=== PATIENT | female | born 1955 | race Caucasian/White ===

== ENCOUNTER → 2017-01-24 | Outpatient (CLI) | payer OTHER | LOC: LAB 14:43 | DX: N39.0 Urinary tract infection, site not specified (principal); N39.41 Urge incontinence ==

== ENCOUNTER 2017-02-03 03:39 | Emergency (ER) | payer OTHER | END 2017-02-03 07:33 | disposition short-term general hospital (02) | LOC: ER1 03:39 | DX: R07.9 Chest pain, unspecified (principal); F41.9 Anxiety disorder, unspecified; S50.812A Abrasion of left forearm, initial encounter; Z88.0 Allergy status to penicillin; Z88.2 Allergy status to sulfonamides; Z79.899 Other long term (current) drug therapy; W10.9XXA Fall (on) (from) unspecified stairs and steps, initial encounter | CPT/HCPCS: 51702; 71010; 93005; 96374; 96375; 96376; 99285; J2060; J2270 ==

== ENCOUNTER → 2020-11-08 | Outpatient (CLI) | payer MEDICARE, OTHER ==
[~2020-11-08] MED LIST: AMBIEN5 MG PO; CLARITIN10 MG PO; CYANOCOBAL1000 MCG/1 INJ; CYMBALTA60 MG PO; EFFIENT5 MG PO; ELIQUIS 2.5 MG2.5 MG PO; FEOSOL325 MG PO; FLONASE 0.05% N16 GM; IMITREX20 MG; MELATONIN 5 MG1 EAC1 PO; MIRAPEX1 MG PO; NEURONTIN 300300 MG PO; NORCO 10-325 T1 EACH PO; PHENERGAN 25 MG25 M1 PO; PRILOSEC OTC20 MG PO; PROBIOTIC1 EAC1 PO; PROGESTERONE100 MG PO; RESTORIL15 MG PO; SINEQUAN CAP 5050 MG PO; SYNTHROID 150150 MCG PO; VITAMIN D22000 UNIT PO; [UNRECOGNIZED DRUG - OTHER]
== END ==
LOC: EXRD 13:11
DX: Z01.818 Encounter for other preprocedural examination (principal); I51.7 Cardiomegaly; J98.4 Other disorders of lung
CPT/HCPCS: 71046

== ENCOUNTER → 2021-02-07 | Outpatient (CLI) | payer MEDICARE, OTHER | LOC: HEART 5 09:17 | DX: R06.00 Dyspnea, unspecified (principal); R06.02 Shortness of breath | CPT/HCPCS: 94010 ==

== ENCOUNTER → 2021-05-24 | Outpatient (CLI) | payer MEDICARE, OTHER | LOC: OPSV 11:37 | DX: D50.9 Iron deficiency anemia, unspecified (principal); J30.9 Allergic rhinitis, unspecified; R42 Dizziness and giddiness; R06.02 Shortness of breath | CPT/HCPCS: 96365; J1756 ==

== ENCOUNTER → 2021-05-26 | Outpatient (CLI) | payer MEDICARE, OTHER | LOC: OPSV 10:00 | DX: J30.9 Allergic rhinitis, unspecified (principal); R42 Dizziness and giddiness; D50.9 Iron deficiency anemia, unspecified; R06.02 Shortness of breath | CPT/HCPCS: 96365; J1756 ==

== ENCOUNTER → 2021-05-31 | Outpatient (CLI) | payer MEDICARE, OTHER | LOC: OPSV 10:43 | DX: D50.9 Iron deficiency anemia, unspecified (principal); R42 Dizziness and giddiness; M54.9 Dorsalgia, unspecified; J30.9 Allergic rhinitis, unspecified; R06.02 Shortness of breath | CPT/HCPCS: 81001; 96365; J1756 ==

== ENCOUNTER → 2021-06-02 | Outpatient (CLI) | payer MEDICARE, OTHER | LOC: OPSV 10:46 | DX: D50.9 Iron deficiency anemia, unspecified (principal); J30.9 Allergic rhinitis, unspecified; R42 Dizziness and giddiness; R06.02 Shortness of breath | CPT/HCPCS: 96365; J1756 ==

== ENCOUNTER → 2021-06-06 | Outpatient (CLI) | payer MEDICARE, OTHER | LOC: OPSV 10:55 | DX: J30.9 Allergic rhinitis, unspecified (principal); R42 Dizziness and giddiness; D50.9 Iron deficiency anemia, unspecified; R06.02 Shortness of breath | CPT/HCPCS: 96365; J1756 ==

== ENCOUNTER → 2021-06-14 | Outpatient (CLI) | payer MEDICARE, OTHER ==
[2021-06-14 12:04] LABS: HEMOGLOBIN 12.5 gm/dl (12.3-15.3); RED BLOOD COUNT 3.82 M/UL (4.00-5.10); WHITE BLOOD COUNT 4.1 K/UL (4.5-11.0)
== END ==
LOC: LAB 11:20
PROVIDERS: Nurse Practitioner Family
DX: M25.562 Pain in left knee (principal); D64.9 Anemia, unspecified; N39.0 Urinary tract infection, site not specified; D50.9 Iron deficiency anemia, unspecified; M17.12 Unilateral primary osteoarthritis, left knee
CPT/HCPCS: 73562; 81001; 82728; 83540; 83550; 85025

== ENCOUNTER → 2021-08-01 | Outpatient (CLI) | payer MEDICARE, OTHER | LOC: KOH-I 13:11 | DX: S32.030A Wedge compression fracture of third lumbar vertebra, initial encounter for closed fracture (principal); M81.0 Age-related osteoporosis without current pathological fracture; M51.37 Other intervertebral disc degeneration, lumbosacral region | CPT/HCPCS: 72131 ==

== ENCOUNTER 2021-08-03 03:58 | Emergency (ER) | payer MEDICARE, OTHER ==
[2021-08-03 04:35] LABS: HEMOGLOBIN 13.3 gm/dl (12.3-15.3); RED BLOOD COUNT 4.02 M/UL (4.00-5.10); WHITE BLOOD COUNT 4.9 K/UL (4.5-11.0)
[2021-08-03 04:57] LABS: BUN/CREATININE RATIO 19 (0-10)
[2021-08-03 05:28] LABS: BORDETELLA PARAPERTUSSIS Not Detected (Not Detectd); BORDETELLA PERTUSSIS Not Detected (Not Detectd); CHLAMYDIA PNEUMONIAE Not Detected (Not Detectd); CORONAVIRUS HKU1 Not Detected (Not Detectd); CORONAVIRUS NL63 Not Detected (Not Detectd); CORONAVIRUS OC43 Not Detected (Not Detectd); CORONOAVIRUS 229E Not Detected (Not Detectd); HUMAN METAPNEUMOVIRUS Not Detected (Not Detectd); HUMAN RHINOVIRUS/ENTEROVIRUS Not Detected (Not Detectd); INFLUENZA A Not Detected (Not Detectd); INFLUENZA B Not Detected (Not Detectd); MYCOPLASMA PNEUMONIAE Not Detected (Not Detectd); PARAINFLUENZA VIRUS 1 Not Detected (Not Detectd); PARAINFLUENZA VIRUS 2 Not Detected (Not Detectd); PARAINFLUENZA VIRUS 3 Not Detected (Not Detectd); PARAINFLUENZA VIRUS 4 Not Detected (Not Detectd); RESPIRATORY SYNCYTIAL VIRUS Not Detected (Not Detectd)
[2021-08-03 06:32] LABS: SARS-CoV-2 NOT DETECTED (Not Detectd)
== END 2021-08-03 06:31 | disposition home or self-care (01) ==
LOC: ER1 03:58
PROVIDERS: Physician Assistant
DX: R50.9 Fever, unspecified (principal); R05.9 Cough, unspecified; Z20.822 Contact with and (suspected) exposure to COVID-19; K21.9 Gastro-esophageal reflux disease without esophagitis; Z88.0 Allergy status to penicillin; Z88.2 Allergy status to sulfonamides; Z88.8 Allergy status to other drugs, medicaments and biological substances
CPT/HCPCS: 71045; 80053; 82550; 82553; 83874; 84484; 85025; 87633; 93005; 99284

== ENCOUNTER → 2021-11-23 | Outpatient (CLI) | payer MEDICARE, OTHER ==
[~2021-11-23] MED LIST changes: +HYDROCODON-ACE1 EAC6 PO; +METOPROLOL SUCC25 MG PO; +MOVANTIK25 MG PO; +SINGULAIR10 MG PO; -SYNTHROID 150150 MCG PO; +SYNTHROID112 MCG PO
== END ==
LOC: KOH-I 07-25 11:30
DX: R06.02 Shortness of breath (principal); R91.1 Solitary pulmonary nodule; R06.00 Dyspnea, unspecified; R91.8 Other nonspecific abnormal finding of lung field; K59.00 Constipation, unspecified
CPT/HCPCS: 71250

== ENCOUNTER → 2021-12-11 | Outpatient (CLI) | payer MEDICARE, OTHER ==
[~2021-12-11] MED LIST changes: +AMITRIPTYLINE H10 MG PO; +COENZYME Q1010 MG PO; +MAG GLYCINATE100 MG PO; +VALACYCLOVIR1000 MG PO
[2021-12-11 12:20] LABS: BUN/CREATININE RATIO 20 (0-10)
== END ==
LOC: LAB 11:32
PROVIDERS: Orthopaedic Surgery
DX: Z01.812 Encounter for preprocedural laboratory examination (principal)
CPT/HCPCS: 80048; 86850; 86900; 86901

== ENCOUNTER 2021-12-12 09:33 | Inpatient (IN) | payer MEDICARE, OTHER ==
[~2021-12-12] VITALS: Ht 172.7 cm; Wt 79.4 kg
[~2021-12-12 09:33] MED LIST changes: -VALACYCLOVIR1000 MG PO
[2021-12-12] MEDS ORDERED: VALACYCLOVIR1000 MG PO (20:32)
[2021-12-13 07:21] LABS: RED BLOOD COUNT 3.08 M/UL (4.00-5.10); WHITE BLOOD COUNT 8.6 K/UL (4.5-11.0)
[2021-12-13 07:36] LABS: BUN/CREATININE RATIO 22 (0-10)
[2021-12-14 07:03] LABS: HEMOGLOBIN 9.8 gm/dl (12.3-15.3); WHITE BLOOD COUNT 6.7 K/UL (4.5-11.0)
[2021-12-14 07:04] LABS: RED BLOOD COUNT 2.75 M/UL (4.00-5.10)
[2021-12-14 07:21] LABS: BUN/CREATININE RATIO 20 (0-10)
[2021-12-15 07:02] LABS: HEMOGLOBIN 8.6 gm/dl (12.3-15.3); RED BLOOD COUNT 2.53 M/UL (4.00-5.10); WHITE BLOOD COUNT 6.3 K/UL (4.5-11.0)
[2021-12-15 07:09] LABS: BUN/CREATININE RATIO 13 (0-10)
[2021-12-16 11:01] LABS: RED BLOOD COUNT 2.58 M/UL (4.00-5.10)
[2021-12-16 11:19] LABS: BUN/CREATININE RATIO 18 (0-10)
[2021-12-16] MEDS ORDERED: OXYCODON-ACETA1 EAC1 PO (13:26)
[2021-12-16] MEDS ORDERED: ASPIRIN EC81 MG PO (13:27)
--- NOTE | 2021-12-16 15:57 | NUR ---
pt discharge teaching completed, she and her verbalized understanding, scripts in hand, clean dressing to knee as well as supplies for 2 dressing changes given. awaiting transporter
== END 2021-12-16 13:22 | disposition home health service (06) | DRG 470 ==
LOC: OR 09:33 → M/S 19:07 → OR 19:08 → M/S 12-16 13:22
PROVIDERS: Nurse Practitioner Family; ADMIT Orthopaedic Surgery
PROC: 0QH704Z Insertion of Internal Fixation Device into Left Upper Femur, Open Approach (ICD-10-PCS; 2021-12-12)
PROC: 0SRD0J9 Replacement of Left Knee Joint with Synthetic Substitute, Cemented, Open Approach (ICD-10-PCS; principal; 2021-12-12 12:30)
PROC: 0QP704Z Removal of Internal Fixation Device from Left Upper Femur, Open Approach (ICD-10-PCS; 2021-12-12 12:30)
DX: M17.12 Unilateral primary osteoarthritis, left knee (principal); F11.20 Opioid dependence, uncomplicated; Z96.651 Presence of right artificial knee joint; Z20.822 Contact with and (suspected) exposure to COVID-19; K21.9 Gastro-esophageal reflux disease without esophagitis; D64.9 Anemia, unspecified; R32 Unspecified urinary incontinence; G43.909 Migraine, unspecified, not intractable, without status migrainosus; K44.9 Diaphragmatic hernia without obstruction or gangrene; K59.09 Other constipation; G89.29 Other chronic pain; F41.9 Anxiety disorder, unspecified; G25.81 Restless legs syndrome; E03.9 Hypothyroidism, unspecified; Z86.711 Personal history of pulmonary embolism; Z79.01 Long term (current) use of anticoagulants; Z87.01 Personal history of pneumonia (recurrent); Z87.11 Personal history of peptic ulcer disease; Z88.5 Allergy status to narcotic agent; Z88.0 Allergy status to penicillin; Z88.2 Allergy status to sulfonamides; Z79.82 Long term (current) use of aspirin
CPT/HCPCS: 36415; 73552; 73560; 76000; 80048; 81001; 85025; 85027; 97116-GP-CQ; 97161; 97166; 97530; 97530-GP-CQ; 97535; C1713; C1776; J0690; J1100; J1170; J1644; J2270; J2405; J2704; J2795; J3010; J3370; J7030; J7120

== ENCOUNTER → 2022-03-20 | Outpatient (CLI) | payer MEDICARE, OTHER ==
[~2022-03-20] MED LIST changes: +ASPIRIN EC81 MG PO; +OXYCODON-ACETA1 EAC1 PO; +VALACYCLOVIR1000 MG PO
== END ==
LOC: OPSV 15:00
DX: M81.0 Age-related osteoporosis without current pathological fracture (principal)
CPT/HCPCS: 96372